=== PATIENT | female | born 1955 | race African-American/Black ===

== ENCOUNTER 2017-02-26 07:08 | Emergency (ER) | payer SELFPAY ==
[2017-02-26 07:32] LABS: #Lymphocytes 0.8 thou/uL (1.20-3.40); #Monocytes 0.2 thou/uL (0.11-0.59); #Neutrophils 3.7 thou/uL (1.40-6.50); %Basophils 0.4 % (0.0-1.0); %Eosinophils 1.1 % (0.0-10.0); %Lymphocytes 16.7 % (21.0-51.0); %Monocytes 3.5 % (0.0-10.0); Hematocrit 40.7 % (36.0-47.0); Mean Platelet Volume 8.2 fL (7.4-10.4); Red Blood Cell (RBC) Count 4.63 mill/uL (4.20-5.40); White Blood Cell (WBC) Count 4.7 thou/uL (4.8-10.8)
[2017-02-26 07:38] LABS: Bilirubin Negative (Negative); Blood, Urine Negative (Negative); Glucose, Urine (Dipstick) Negative (Negative); Ketone, Urine Negative (Negative); Nitrite Negative (Negative); Protein, Urine (Dipstick) 300 mg/dL (Neg-Trace); Urobilinogen 0.2 mg/dL (0.2-1.0)
[2017-02-26 07:40] LABS: Bacteria/HPF None Seen HPF (None Seen); Hyaline Casts/LPF 0-3 HYALINE CAST LPF (0-3 Hyaline); RBC/HPF 0-3 HPF (0-3); Squamous Epithelial 0-3 HPF (0-3); WBC/HPF 0-3 HPF (0-3)
[2017-02-26 07:52] LABS: Renal Epithelial None Seen HPF (0-3); Transitional Epithelial NONE SEEN HPF (0-3)
[2017-02-26 07:57] LABS: ALT (SGPT) 10 U/L (8-55); AST (SGOT) 15 U/L (5-34); Alkaline Phosphatase 86 U/L (40-150); Anion Gap 12 mmol/L (10-20); BUN (Urea Nitrogen) 13 mg/dL (9.8-20.1); Bilirubin, Total 0.3 mg/dL (0.2-1.2); Calc. Creatinine Clearance 0 mL/min (70-130); Calcium 9.7 mg/dL (7.8-10.44); Carbon Dioxide 27 mmol/L (23-31); Chloride 103 mmol/L (98-107); Estimated GFR-MDRD 87; Lipase 21 U/L (8-78)
[2017-02-26] MEDS ORDERED: Ondansetron HCl/PF 4 MG/2 ML Vial ONE ×2 (08:40→08:49)
[2017-02-26] MEDS ORDERED: Mag-Al 1200 mg/1200 mg/30 ML UDCUP ONE (08:40)
[2017-02-26] MEDS ORDERED: Lidocaine Viscous Sol 2% 15 ml UD Cup ONE (08:40)
[2017-02-26 08:58] LABS: Troponin I Less than 0.010 ng/mL (< 0.028)
--- NOTE | 2017-02-26 12:46 | CT ---
CT ABDOMEN WITH CONTRAST CT PELVIS WITH CONTRAST: Date: 02/26/17 HISTORY: 61-year-old female with generalized abdominal pain, nausea, and emesis. TECHNIQUE: IV injection of iodinated contrast media: Administered. Oral contrast media: Not administered. FINDINGS: Liver: No focal solid mass. Spleen: No splenomegaly. Pancreas: No mass or surrounding fat stranding. Adrenals: No mass. Kidneys: No hydronephrosis or enhancement abnormalities. Ureters: No dilation. Bladder: No pathology identified. Abdominal aorta: No aneurysm. Small bowel: No dilation. Colon: No adjacent fat stranding. Appendix: No dilation or adjacent fat stranding. Free air: None. Free fluid: None. There are mixed sclerotic and lucent changes involving the entire L3 vertebral body, including coars e trabeculae. IMPRESSION: 1. No major pathology identified. 2. 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 champ fish POS: [facility]UAN MANUEL
[2017-02-26] MEDS ORDERED: Iopamidol 370 76% 50 ML VIAL FS ONE (16:46)
== END 2017-02-26 12:29 | disposition home or self-care (01) ==
LOC: ERS 07:08
DX: R10.13 Epigastric pain (principal); I10 Essential (primary) hypertension; Z79.899 Other long term (current) drug therapy
CPT/HCPCS: 36415; 74177; 80053; 81003; 81015; 82553; 83690; 84484; 85025; 93005; J2270; J2405

== ENCOUNTER 2017-07-18 23:34 | Emergency (ER) | payer OTHER, SELFPAY ==
[2017-07-19 00:16] LABS: #Basophils 0.1 thou/uL (0.0-0.2); #Eosinphils 0.5 thou/uL (0.0-0.7); #Monocytes 0.4 thou/uL (0.11-0.59); #Neutrophils 2.3 thou/uL (1.40-6.50); %Basophils 1.7 % (0.0-1.0); %Eosinophils 9.3 % (0.0-10.0); %Monocytes 6.9 % (0.0-10.0); %Neutrophils 44.1 % (42.0-75.0); Hemoglobin 12.3 g/dL (12.0-16.0); Mean Corpuscular HGB CONC 34.6 g/dL (32.0-36.0); Mean Corpuscular Hemoglobin 30.2 pg (27.0-31.0); Mean Corpuscular Volume 87.3 fl (81.0-99.0); Mean Platelet Volume 8.3 fL (7.4-10.4); Platelet Count 189 thou/uL (130-400); RBC Distribution Width 11.8 % (11.5-14.5); Red Blood Cell (RBC) Count 4.06 mill/uL (4.20-5.40); White Blood Cell (WBC) Count 5.3 thou/uL (4.8-10.8)
[2017-07-19 00:38] LABS: ALT (SGPT) 13 U/L (8-55); AST (SGOT) 17 U/L (5-34); Albumin 3.8 g/dL (3.4-4.8); Alkaline Phosphatase 80 U/L (40-150); Anion Gap 7 mmol/L (10-20); BUN (Urea Nitrogen) 14 mg/dL (9.8-20.1); Bilirubin, Total 0.2 mg/dL (0.2-1.2); Calc. Creatinine Clearance 0 mL/min (70-130); Calcium 9.4 mg/dL (7.8-10.44); Carbon Dioxide 29 mmol/L (23-31); Chloride 107 mmol/L (98-107); Estimated GFR-MDRD 67; Globulin 3.3 g/dL (2.4-3.5); Glucose 92 mg/dL (80-115); Potassium 4.2 mmol/L (3.5-5.1); Protein, Total 7.1 g/dL (6.0-8.3); Sodium 139 mmol/L (136-145)
[2017-07-19 00:41] LABS: CKMB 1.1 ng/mL (0-6.6); Troponin I Less than 0.010 ng/mL (< 0.028)
[2017-07-19] MEDS ORDERED: diphenhydrAMINE 50 MG/ML VIAL ONE (00:43)
[2017-07-19] MEDS ORDERED: Metoclopramide HCl 10 MG/2 ML VIAL ONE (00:43)
[2017-07-19] MEDS ORDERED: Ketorolac Tromethamine 30 MG/ML VIAL ONE (00:43)
--- NOTE | 2017-07-19 06:58 | CT ---
HEAD CT WITHOUT CONTRAST: 07/19/2017 COMPARISON: 09/07/2016 HISTORY: Headache. TECHNIQUE: Serial axial CT imaging at 5 mm intervals, from the vertex through the skull base, without contrast. FINDINGS: The imaged paranasal sinuses/mastoid air cells are well aerated. No displaced calvarial fracture. No intracranial hemorrhage, midline shift, or mass effect. There is extensive periventricular, deep, and subcortical white matter hypodensity, suggesting signif icant small vessel disease, similar when compared to prior imaging. IMPRESSION: 1. No intracranial hemorrhage. 2. Small vessel disease noted. POS: [facility]
--- NOTE | 2017-07-19 07:46 | RAD ---
CHEST 1 VIEW: Date: 07/19/17 HISTORY: Chest pain. COMPARISON: 12/20/16. FINDINGS: Cardiac silhouette is magnified by projection. Pulmonary vasculature is unremarkable. Mediastinum is midline. There is no lobar consolidation or evidence of pneumothorax. Postoperative changes of the ri ght shoulder are apparent. IMPRESSION: No active cardiopulmonary abnormalities are demonstrated. POS: [facility]
--- NOTE | 2017-07-23 17:05 | EKG ---
Test Reason : HAHIGHBP Blood Pressure : / mmHG Vent. Rate : 054 BPM Atrial Rate : 054 BPM P-R Int : 144 ms QRS Dur : 098 ms QT Int : 428 ms P-R-T Axes : 045 -28 -55 degrees QTc Int : 405 ms Sinus bradycardia with occasional Premature ventricular complexes Voltage criteria for left ventricular hypertrophy Abnormal ECG Confirmed by ROSALIE WAGNER D.O. ([id number]), editorial specialist EVELIA ALVES ([id number] on 07/23/2017 5:04:30 PM Referred By: SOCORRO Confirmed By:ROSALIE WAGNER D.O.
== END 2017-07-19 01:45 | disposition home or self-care (01) ==
LOC: ERS 23:34
DX: R51 Headache (principal); I10 Essential (primary) hypertension; Z79.899 Other long term (current) drug therapy
CPT/HCPCS: 70450; 71045; 80053; 82553; 84484; 85025; 93005; 96365; 96375; J1200; J1885; J2765

== ENCOUNTER 2019-03-23 08:06 | Outpatient (CLI) | payer OTHER ==
--- NOTE | 2019-03-23 10:27 | RAD ---
RIGHT KNEE 4 VIEWS: Date: 03/23/19 INDICATION: Right knee pain. COMPARISON: None. FINDINGS: No acute fracture or subluxation is evident. There is moderate osteoarthrosis of the right knee, pred ominantly affecting the lateral femorotibial joint compartment. Soft tissues are normal appearing. IMPRESSION: Moderate right knee osteoarthrosis. POS: OFF
== END 2019-03-23 08:07 | disposition home or self-care (01) ==
LOC: RAD-FRANK 08:06
PROVIDERS: ATTEND Internal Medicine
DX: M25.561 Pain in right knee (principal); M17.11 Unilateral primary osteoarthritis, right knee

== ENCOUNTER 2022-02-07 16:20 | Emergency (ER) | payer OTHER ==
[~2022-02-07 16:20] MED LIST: Iopamidol-370 76% 500 ML 1 ML ONE
[2022-02-07 16:48] LABS: Hemoglobin 12.4 g/dL (12.0-16.0); Mean Corpuscular Hemoglobin 30.6 pg (27.0-31.0); Mean Corpuscular Volume 87.5 fL (78.0-98.0); Mean Platelet Volume 8.5 fL (7.4-10.4); Platelet Count 187 thou/uL (130-400); RBC Distribution Width 12.2 % (11.5-14.5); Red Blood Cell (RBC) Count 4.04 mill/uL (4.20-5.40); White Blood Cell (WBC) Count 5.5 thou/uL (4.8-10.8)
[2022-02-07 17:01] LABS: ALT (SGPT) 14 U/L (8-55); AST (SGOT) 24 U/L (5-34); Albumin 3.9 g/dL (3.4-4.8); Alkaline Phosphatase 86 U/L (40-110); Anion Gap 14 mmol/L (10-20); BUN (Urea Nitrogen) 13 mg/dL (9.8-20.1); Bilirubin, Total 0.4 mg/dL (0.2-1.2); Calc. Creatinine Clearance 0 mL/min (70-130); Calcium 9.3 mg/dL (7.8-10.44); Carbon Dioxide 25 mmol/L (23-31); Chloride 102 mmol/L (98-107); Estimated GFR 66; Globulin 3.8 g/dL (2.4-3.5); Glucose 83 mg/dL (80-115); Potassium 4.1 mmol/L (3.5-5.1); Protein, Total 7.7 g/dL (5.8-8.1); Sodium 137 mmol/L (136-145)
[2022-02-07 17:09] LABS: Eosinophils 3 % (0-10); Lymphocytes 31 % (21-51); MDiff Complete? YES; Monocytes 5 % (0-10); Neutrophil 56 % (42-75); Platelet Morphology Comment Appears Adequate; Polychromasia SLIGHT = 2-3 cells (100X) (0-2/hpf); Reactive Lymphocytes 3 % (0-10)
[2022-02-07] MEDS ORDERED: Acetaminophen 500 MG TAB ONE (18:25)
[2022-02-07] MEDS ORDERED: diphenhydrAMINE 50 MG/ML VIAL ONE (18:25)
[2022-02-07] MEDS ORDERED: Metoclopramide HCl 10 MG/2 ML VIAL ONE (18:25)
[2022-02-07] MEDS ORDERED: Aspirin Chewable 81 MG TAB ONE (18:51)
[2022-02-07 19:43] LABS: Bilirubin Negative (Negative); Blood, Urine Negative (Negative); Clarity Clear (Clear); Glucose, Urine (Dipstick) Normal (Negative); Ketone, Urine Negative (Negative); Leukocyte Negative Leu/uL (Negative); Nitrite Negative (Negative); Protein, Urine (Dipstick) Negative (Neg-Trace); Urobilinogen Normal mg/dL (Less than 2); pH, Urine 6.5 (5.0-9.0)
== END 2022-02-07 20:37 | disposition left against medical advice (07) ==
LOC: ERS 16:20
DX: I63.9 Cerebral infarction, unspecified (principal); R29.702 NIHSS score 2; I10 Essential (primary) hypertension
CPT/HCPCS: 36416; 70450; 70496; 70498; 71045; 80053; 81003; 83880; 84484; 85025; 85610; 85730; 87086; 93005; 96374; 96375; J1200; J2765; Q9967